=== PATIENT | male | born 1965 | race Caucasian/White ===

== ENCOUNTER → 2020-12-07 | Outpatient (CLI) | payer BC ==
[2020-12-07 08:58] LABS: HEMOGLOBIN 14.7 gm/dl (14.0-17.5); RED BLOOD COUNT 5.26 M/UL (4.20-5.50); WHITE BLOOD COUNT 5.8 K/UL (4.5-11.0)
[2020-12-08 08:13] LABS: THYROXINE (T4) 7.7 ug/dL (4.5-12.0)
== END ==
LOC: LAB 07:38
PROVIDERS: Nurse Practitioner Family
DX: Z12.5 Encounter for screening for malignant neoplasm of prostate (principal); Z13.1 Encounter for screening for diabetes mellitus; E03.9 Hypothyroidism, unspecified; E78.5 Hyperlipidemia, unspecified; I10 Essential (primary) hypertension
CPT/HCPCS: 36415; 80053; 80061; 81001; 83036; 84153; 84436; 84443; 84480; 85025

== ENCOUNTER → 2021-01-11 | Outpatient (CLI) | payer BC ==
[2021-01-12 09:13] LABS: THYROXINE (T4) 9.7 ug/dL (4.5-12.0)
== END ==
LOC: LAB 06:37
PROVIDERS: Nurse Practitioner Family
DX: E03.9 Hypothyroidism, unspecified (principal)
CPT/HCPCS: 36415; 84436; 84443; 84480

== ENCOUNTER → 2021-02-22 | Outpatient (CLI) | payer BC ==
[2021-02-23 08:13] LABS: THYROXINE (T4) 9.2 ug/dL (4.5-12.0)
== END ==
LOC: LAB 06:03
PROVIDERS: Nurse Practitioner Family
DX: E03.9 Hypothyroidism, unspecified (principal)
CPT/HCPCS: 36415; 84436; 84443; 84480

== ENCOUNTER → 2021-11-25 | Outpatient (CLI) | payer BC ==
[2021-11-25 06:45] LABS: HEMOGLOBIN 15.5 gm/dl (14.0-17.5); RED BLOOD COUNT 5.37 M/UL (4.20-5.50); WHITE BLOOD COUNT 6.3 K/UL (4.5-11.0)
[2021-11-26 07:11] LABS: VITAMIN D, 25-HYDROXY 78.4 ng/mL (30.0-100.0)
[2021-11-26 08:14] LABS: THYROXINE (T4) 9.5 ug/dL (4.5-12.0)
== END ==
LOC: LAB 06:12
PROVIDERS: Nurse Practitioner Family
DX: E03.9 Hypothyroidism, unspecified (principal); E78.5 Hyperlipidemia, unspecified; I10 Essential (primary) hypertension; E11.9 Type 2 diabetes mellitus without complications; E55.9 Vitamin D deficiency, unspecified
CPT/HCPCS: 36415; 80053; 80061; 81001; 83036; 84153; 84436; 84443; 84480; 85025